=== PATIENT | male | born 1985 | race Caucasian/White ===

== ENCOUNTER → 2016-09-11 | Outpatient (CLI) | payer OTHER ==
[~2016-09-11] MED LIST: ANCEF 1GM1 GM/50 M1 IVPB; DUONEB 2.5-0.5 M3 ML INH; PREDNISONE 20 M20 MG PO; VENTOLIN HFA 1818 GM INH
[2016-09-11 11:17] LABS: HEMATOCRIT 35.9 % (42.0-52.0); HEMOGLOBIN 11.7 gm/dL (14.0-18.0); MCH 26.4 pg (26.0-34.0); MCHC 32.5 g/dL (28.0-37.0); MCV 81.3 fL (80.0-100.0); RBC 4.42 mil/uL (4.50-6.00); RDW 16.3 % (10.5-14.5); WBC 14.5 thou/uL (4.0-11.0)
[2016-09-11 11:37] LABS: CALCIUM 8.4 mg/dL (8.5-10.1); CREATININE 0.8 mg/dL (0.6-1.3); POTASSIUM 4.1 mmol/L (3.5-5.1)
== END | disposition home or self-care (01) ==
LOC: OPONC 08:01
PROVIDERS: Specialist
DX: Z45.2 Encounter for adjustment and management of vascular access device (principal)

== ENCOUNTER → 2016-09-18 | Outpatient (CLI) | payer OTHER ==
[2016-09-18 09:51] LABS: HEMATOCRIT 40.4 % (42.0-52.0); HEMOGLOBIN 13.3 gm/dL (14.0-18.0); MCH 26.8 pg (26.0-34.0); MCHC 32.9 g/dL (28.0-37.0); MCV 81.5 fL (80.0-100.0); RBC 4.95 mil/uL (4.50-6.00); RDW 17.5 % (10.5-14.5); WBC 18.3 thou/uL (4.0-11.0)
[2016-09-18 10:06] LABS: CREATININE 0.9 mg/dL (0.6-1.3); POTASSIUM 4.3 mmol/L (3.5-5.1)
== END | disposition home or self-care (01) ==
LOC: OPONC 07:39
PROVIDERS: Specialist
DX: Z45.2 Encounter for adjustment and management of vascular access device (principal)
CPT/HCPCS: 91024

== ENCOUNTER → 2016-10-04 | Outpatient (CLI) | payer OTHER ==
[2016-10-04 15:31] LABS: HEMOGLOBIN 13.9 gm/dL (14.0-18.0); MCH 27.8 pg (26.0-34.0); MCHC 33.9 g/dL (28.0-37.0); PLATELET COUNT 519 thou/uL (150-400); RDW 18.6 % (10.5-14.5); WBC 17.4 thou/uL (4.0-11.0)
[2016-10-04 15:33] LABS: MANUAL DIFF YES
[2016-10-04 15:41] LABS: CALCIUM 9.7 mg/dL (8.5-10.1); CREATININE 0.9 mg/dL (0.7-1.3); POTASSIUM 4.6 mmol/L (3.5-5.1)
[2016-10-04 15:45] LABS: ALBUMIN 3.6 g/dL (3.4-5.0); TOTAL BILIRUBIN 0.3 mg/dL (<0.1-1.0)
[2016-10-04 16:13] LABS: ANISOCYTOSIS 1+; TOTAL CELL COUNT 100
== END ==
LOC: RAD 15:06
PROVIDERS: Specialist
DX: J18.9 Pneumonia, unspecified organism (principal); R91.8 Other nonspecific abnormal finding of lung field